=== PATIENT | female | born 1985 | race Caucasian/White ===

== ENCOUNTER 2022-11-02 22:19 | Emergency (ER) | payer OTHER ==
[~2022-11-02] VITALS: Ht 170.2 cm; Wt 86.4 kg
[2022-11-03] MEDS ORDERED: ACETAMINOPHEN 500 MG TABLET PO ONE
[2022-11-03 00:11] VITALS: BP 126/71
== END 2022-11-03 01:42 | disposition home or self-care (01) ==
LOC: EMS 22:23
DX: S93.401A Sprain of unspecified ligament of right ankle, initial encounter (principal); X50.1XXA Overexertion from prolonged static or awkward postures, initial encounter; Y93.89 Activity, other specified; Y92.89 Other specified places as the place of occurrence of the external cause; Y99.8 Other external cause status
CPT/HCPCS: 99283